=== PATIENT | female | born 1935 | race Caucasian/White ===

== ENCOUNTER → 2024-12-24 15:34 | Outpatient (CLI) | payer MEDICARE, SELFPAY ==
--- NOTE | 2024-12-24 16:26 | EKG_ITS ---
[address] [address] Test Date: 2024-12-24 Pat Name: Latanya Frank Department: [facility] Room: Gender: Female [employer]: LUIZ : 1935 Requested By: Order Number: [id number] Reading MD: Mansoor Woods Measurements Intervals [place] Rate: 68 P: 9 PA: 154 QRS: -17 QRSD: 94 T: 17 QT: 396 QTc: 421 Interpretive Statements Normal sinus rhythm Electronically Signed On 12-25-2024 20:04:34 PST by Mansoor Woods
== END ==
PROVIDERS: Referring Provider Podiatrist; Visit Provider Podiatrist
DX: Z01.818 Encounter for other preprocedural examination (principal)
CPT/HCPCS: 93005